=== PATIENT | male | born 1955 | race Caucasian/White ===

== ENCOUNTER 2023-04-28 12:57 | Emergency (ER) | payer OTHER, MEDICARE ==
[~2023-04-28] VITALS: Ht 180.3 cm; Wt 127.0 kg
[2023-04-28 13:10] VITALS: BP_SYST 200; PULSE 71; RESP 19; TEMP 98.6; O2SAT 97
[2023-04-28 14:20] LABS: BASOPHILS # (AUTO) 0.1 K/uL (0.0-0.2); BASOPHILS % (AUTO) 1.1 % (0.0-2.0); EOSINOPHILS # (AUTO) 0.6 K/uL (0.0-0.4); EOSINOPHILS % (AUTO) 6.4 % (0.0-4.0); HEMATOCRIT 42.2 % (36-54); HEMOGLOBIN 14.2 g/dL (14.0-18.0); LYMPHOCYTES # (AUTO) 2.1 K/uL (1.0-5.5); LYMPHOCYTES % (AUTO) 23.5 % (20.5-51.5); MEAN CORPUSCULAR HEMOGLOBIN 33 pg (27-31); MEAN CORPUSCULAR HGB CONC 34 % (32-36); MEAN CORPUSCULAR VOLUME 99 fL (79.0-98.0); MONOCYTES % (AUTO) 10.9 % (1.7-9.3); NEUTROPHILS # (AUTO) 5.1 K/uL (1.8-7.7); NEUTROPHILS % (AUTO) 58.1 % (40.0-70.0); PLATELET COUNT (AUTO) 268 K/uL (130-430); RED BLOOD CELL COUNT(AUTO) 4.28 MIL/uL (4.2-6.2); RED CELL DISTRIBUTION WIDTH 12.7 % (9.0-15.0); WHITE BLOOD COUNT (AUTO) 8.8 K/uL (4.8-10.8)
[2023-04-28 14:24] LABS: ANION GAP 9 (5-15); CALCIUM 8.9 mg/dL (8.4-11.0); CARBON DIOXIDE 28 mmol/L (23-29); CHLORIDE 104 mmol/L (98-107); CREATININE 0.88 mg/dL (0.55-1.30); GFR AFRICAN AMERICAN 111 mL/min (>90); GLUCOSE 114 mg/dL (74-106); POTASSIUM 4.2 mmol/L (3.5-5.1); SODIUM SERUM 141 mmol/L (136-145); UREA NITROGEN, BLOOD 13 mg/dL (8-21)
[2023-04-28 14:38] LABS: PROTHROMBIN TIME 10.8 SECS (9.5-12.5)
[2023-04-28 14:39] LABS: ALANINE AMINOTRANSFERASE 52 U/L (12-78); ALBUMIN 3.9 g/dL (3.4-4.8); ASPARTATE AMINOTRANSFERASE 37 U/L (10-37); CREATINE KINASE, TOTAL 179 U/L (39-308); GFR NON AFRICAN-AMERICAN 92 mL/min (>90); TOTAL BILIRUBIN 0.8 mg/dL (0.0-1.0); TOTAL PROTEIN, SERUM 7.2 g/dL (6.4-8.3)
[2023-04-28 15:40] LABS: COVID19 ANTIGEN SOFIA FIA NEGATIVE (NEGATIVE)
[2023-04-28] MEDS ORDERED: NITROGLYCERIN 0.4 MG TAB.SUBL SL ONE (15:45)
[2023-04-28 15:54] LABS: INFLUENZA TYPE A negative (NEGATIVE); INFLUENZA TYPE B NEGATIVE (NEGATIVE)
[2023-04-28] MEDS ORDERED: LISI20TA30 PO (16:33)
[2023-04-28 16:41] VITALS: BP_SYST 140; PULSE 80; RESP 19; TEMP 98.6; O2SAT 97
== END 2023-04-28 16:40 | disposition home or self-care (01) ==
LOC: SED 12:57
DX: I16.0 Hypertensive urgency (principal); I10 Essential (primary) hypertension; R06.02 Shortness of breath; R05.9 Cough, unspecified; R07.9 Chest pain, unspecified; Z79.899 Other long term (current) drug therapy; Z20.822 Contact with and (suspected) exposure to COVID-19
CPT/HCPCS: 36415; 71045; 80053; 82550; 83605; 83880; 84484; 85025; 85610-TC; 85730-TC; 93005; 99285